=== PATIENT | male | born 1960 | race Caucasian/White ===

== ENCOUNTER 2017-01-06 08:42 | Inpatient (IN) | payer SELFPAY ==
[~2017-01-06] VITALS: Ht 177.8 cm; Wt 83.9 kg
[2017-01-06] MEDS ORDERED: ONDANSETRON 4 MG/2 ML VIAL IV ONE (09:30)
[2017-01-06] MEDS ORDERED: IV NORMAL SALINE 1000 ML BAG IV ONE (09:30)
[2017-01-06] MEDS ORDERED: ONDANSETRON 4 MG/2 ML VIAL ONE (09:51)
[2017-01-06 09:54] LABS: BASOPHILS % (AUTO) 0.2 % (0.0-2.0); EOSINOPHILS % (AUTO) 0.4 % (0.0-7.0); HEMATOCRIT 44.4 % (40-50); HEMOGLOBIN 14.7 G/DL (14.0-18.0); LYMPHOCYTES # (AUTO) 4.4 K/UL (0.8-4.8); LYMPHOCYTES % (AUTO) 36.8 % (20.5-51.5); MEAN CORPUSCULAR HEMOGLOBIN 26.8 UUG (27.0-31.0); MEAN CORPUSCULAR HGB CONC 33 g/dL (32.0-37.0); MONOCYTES # (AUTO) 1.9 K/UL (0.1-1.30); NEUTROPHILS # (AUTO) 5.6 K/UL (1.8-8.9); NEUTROPHILS % (AUTO) 46.6 % (38.5-71.5); PLATELET COUNT (AUTO) 175 K/UL (150-450); RED BLOOD CELL COUNT(AUTO) 5.48 MIL/UL (4.7-6.1); WHITE BLOOD COUNT (AUTO) 11.9 K/UL (4.0-11.2)
[2017-01-06 10:05] LABS: CREATININE 1.2 mg/dL (0.6-1.3)
[2017-01-06 10:09] LABS: *MONOTEST POSITIVE (NEGATIVE)
[2017-01-06] MEDS ORDERED: IV NORMAL SALINE 250 ML IV ONE (10:30)
[2017-01-06] MEDS ORDERED: IOHEXOL 300MG/ML 100 ML INFUS..BTL ONE (10:30)
--- NOTE | 2017-01-06 11:00 | NUR ---
per pt friend, pt is acting bizzare started few days ago, missed work a few days.
[2017-01-06 11:10] LABS: BAND % (MANUAL) 5 % (0-10); LYMPHOCYTES % (MANUAL) 34 % (20-40); MONOCYTES % (MANUAL) 4 % (2-10); NEUTROPHILS % (MANUAL) 43 % (42-75)
[2017-01-06] MEDS ORDERED: DEXAMETHASONE SOD PHOSPHATE 4 MG INJ IV ONE (11:30)
[2017-01-06] MEDS ORDERED: DEXAMETHASONE SOD PHOSPHATE 10 MG INJ ONE (11:42)
[2017-01-06 11:59] LABS: ALANINE AMINOTRANSFERASE 81 U/L (16-63); ALKALINE PHOSPHATASE 88 U/L (50-136); ASPARTATE AMINOTRANSFERASE 59 U/L (15-37); BILIRUBIN,DIRECT < 0.1 mg/dL (0.0-0.2); BILIRUBIN,TOTAL 0.5 mg/dL (0.2-1.0); TOTAL PROTEIN, SERUM 8.3 g/dL (6.4-8.2)
[2017-01-06 12:22] LABS: *AMPHETAMINE, URINE NEGATIVE (NEGATIVE); *BARBITURATE, URINE NEGATIVE (NEGATIVE); *CANNABINOID, URINE NEGATIVE (NEGATIVE); *COCCAINE, URINE NEGATIVE (NEGATIVE); *OPIATE, URINE NEGATIVE (NEGATIVE); *PHENCYCLIDINE SCREEN,URINE NEGATIVE (NEGATIVE)
--- NOTE | 2017-01-06 12:42 | NUR ---
ranjan at bedside to evaluate the pt.
[2017-01-06] MEDS ORDERED: MORPHINE SULFATE 2 MG/1 ML DISP.SYRIN IV PRN (13:00)
[2017-01-06] MEDS ORDERED: ONDANSETRON 4 MG/2 ML VIAL IV PRN (13:00)
[2017-01-06] MEDS ORDERED: IV D5/ 0.9% NACL 1,000 ML IV PRN (13:00)
[2017-01-06 13:33] LABS: *BLOOD, URINE 2+ (NEGATIVE); *CLARITY,URINE CLEAR (CLEAR); *COLOR,URINE YELLOW (YELLOW); *KETONES,URINE 3+ (NEGATIVE); *PROTEIN,URINE 2+ (NEGATIVE); *UROBILINOGEN,URINE 0.2 E.U./dl (NORMAL); LEUKOCYTE ESTERASE ,URINE NEGATIVE (NEGATIVE); NITRITE, URINE NEGATIVE (NEGATIVE); PH,URINE 5.5 (5.0-8.0); UGLUCOSE NEGATIVE (NEGATIVE)
[2017-01-06 13:35] LABS: *BILIRUBIN,URIN NEGATIVE (NEGATIVE)
[2017-01-06 13:37] LABS: BACTERIA,URINE NONE SEEN /HPF (NONE SEEN); RBC,URINE 0-3 /HPF (0-3); SQUAMOUS EPITHELIAL CELL,UR FEW /HPF (NONE SEEN); WBC,URINE 0-3 /HPF (0-3)
[2017-01-06] MEDS ORDERED: ACETAMINOPHEN 325 MG TABLET PO PRN (14:00)
[2017-01-06] MEDS ORDERED: AMPICILLIN IV 1 G in IV NORMAL SALINE 50 ML IV SCH ×2 (14:00→15:00)
[2017-01-06] MEDS ORDERED: PANTOPRAZOLE SODIUM 40 MG VIAL IV SCH (14:00)
[2017-01-06] MEDS ORDERED: FAMOTIDINE. 20 MG/2 ML VIAL IV SCH (14:07)
--- NOTE | 2017-01-06 15:40 | NUR ---
Patient admitted from emergency room with complaints of sore throat and difficulty swallowing. On assessment patient found to have mononucleosis. Patient is alert and oriented times four. No skin issues at this time. Patient ambulatory and continent. On room air. Calm and cooperative. Will wait for orders.
[2017-01-06 16:00] VITALS: BP 129/61
[2017-01-06] MEDS: ACYCLOVIR IV 500 MG in IV DEXTROSE 5% 100 ML IV SCH ×2 (18:54→21:28)
--- NOTE | 2017-01-06 19:45 | NUR ---
PT RECEIVED IN BED, AWAKE. A/OX4. ABLE TO MAKE NEEDS KNOWN. V/S STABLE. IN NO ACUTE DISTRESS. DOES NOT SHOW DIFFICULTY IN BREATHING. HAS NON-PRODUCTIVE COUGH. NO C/O PAIN AT THIS TIME. PT REMAINS NPO AND ISOLATION IN PLACE. IVF INFUSING. SAFETY MEASURES IMPLEMENTED. CALL LIGHT WITHIN REACH.
[2017-01-06] MEDS: methylPREDNISolone SOD SUCC 40 MG/ML VIAL IV SCH (20:13)
[2017-01-06 20:40] VITALS: BP 115/69
[2017-01-06] MEDS ORDERED: CEFTRIAXONE 1 G in IV DEXTROSE 5% 50 ML IV SCH (22:45)
[2017-01-06] MEDS ORDERED: CEFTRIAXONE 1 G VIAL ONE (23:22)
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
[2017-01-07] MEDS: methylPREDNISolone SOD SUCC 40 MG/ML VIAL IV SCH ×2 (03:30→11:30)
--- NOTE | 2017-01-07 03:37 | NUR ---
UNABLE TO ADMINISTER SOLUMEDROL. IV CONTINUES TO BE D/C TILL AM
[2017-01-07 04:54] VITALS: BP 105/63
--- NOTE | 2017-01-07 06:27 | NUR ---
END OF SHIFT NOTES. PT SLEPT INTERMITTENTLY THROUGHOUT SHIFT. IN STABLE CONDITION. IV FLUIDS HELD. NO IV IN PLACE. PT REMAINS ANXIOUS. PT REQUESTS TO KNOW RESULTS OF LAB WORK. PT NEEDS ATTENDED. SAFETY MAINTAINED. PT ENCOURAGED TO STAY IN ROOM AND MAINTAIN ISOLATION ORDERS.
[2017-01-07 06:42] LABS: THYROID STIMULATING HORMONE 0.501 mIU/mL (0.358-3.740)
--- NOTE | 2017-01-07 07:30 | NUR ---
PT RECEIVED IN BED, AWAKE. A/OX4. ABLE TO MAKE NEEDS KNOWN. V/S STABLE. IN NO ACUTE DISTRESS. DOES NOT SHOW DIFFICULTY IN BREATHING. HAS NON-PRODUCTIVE COUGH. NO C/O PAIN AT THIS TIME. . SAFETY MEASURES IMPLEMENTED. CALL LIGHT WITHIN REACH.
[2017-01-07] MEDS: NYSTATIN SUSPENSION 5 ML LIQUID UDC PO SCH ×2 (08:04→12:21)
[2017-01-07 08:22] LABS: BILIRUBIN,TOTAL 0.5 mg/dL (0.2-1.0); CREATININE 1.2 mg/dL (0.6-1.3); MAGNESIUM 2.4 mg/dL (1.8-2.4); PHOSPHOROUS 3.7 mg/dL (2.5-4.9); POTASSIUM 5.3 mmol/L (3.5-5.1); TOTAL PROTEIN, SERUM 7.8 g/dL (6.4-8.2)
[2017-01-07 08:37] LABS: BASOPHILS % (AUTO) 0.1 % (0.0-2.0); EOSINOPHILS # (AUTO) 0.1 K/uL (0.0-0.7); EOSINOPHILS % (AUTO) 0.5 % (0.0-7.0); HEMATOCRIT 45.1 % (40-50); HEMOGLOBIN 15.1 G/DL (14.0-18.0); LYMPHOCYTES # (AUTO) 4.4 K/UL (0.8-4.8); LYMPHOCYTES % (AUTO) 35.9 % (20.5-51.5); MEAN CORPUSCULAR HEMOGLOBIN 27.1 UUG (27.0-31.0); MEAN CORPUSCULAR HGB CONC 33 g/dL (32.0-37.0); MEAN CORPUSCULAR VOLUME 81.2 FL (82.0-92.0); MONOCYTES # (AUTO) 1.6 K/UL (0.1-1.30); MONOCYTES % (AUTO) 12.9 % (0.0-11.0); NEUTROPHILS # (AUTO) 6.1 K/UL (1.8-8.9); NEUTROPHILS % (AUTO) 50.6 % (38.5-71.5); RED BLOOD CELL COUNT(AUTO) 5.56 MIL/UL (4.7-6.1); WHITE BLOOD COUNT (AUTO) 12.2 K/UL (4.0-11.2)
[2017-01-07 08:40] LABS: PLATELET COUNT (AUTO) 239 K/UL (150-450)
[2017-01-07] MEDS ORDERED: FAMOTIDINE 20 MG TABLET PO SCH (09:00)
[2017-01-07 10:45] LABS: BAND % (MANUAL) 2 % (0-10); LYMPHOCYTES % (MANUAL) 35 % (20-40); MONOCYTES % (MANUAL) 12 % (2-10); NEUTROPHILS % (MANUAL) 45 % (42-75)
[2017-01-07 10:47] LABS: REACTIVE LYMPHOCYTES 6 % (0-0)
[2017-01-07 11:06] VITALS: BP 115/77
[2017-01-07 11:09] LABS: HEPATITIS A AB, IgM Negative (Negative); HEPATITIS B SURFACE AG Negative (Negative)
[2017-01-07 12:11] LABS: *EBV AB VCA IGG <18.0 U/mL (0.0-17.9); *EBV AB VCA IGM >160.0 U/mL (0.0-35.9); *EBV NUCLEAR AG AB <18.0 U/mL (0.0-17.9)
[2017-01-07] MEDS ORDERED: predniSONE 20 MG TABLET PO SCH (12:15)
[2017-01-07] MEDS ORDERED: LEVOFLOXACIN 500 MG TABLET PO SCH (12:15)
[2017-01-07] MEDS ORDERED: NYST5ORA PO (12:49)
[2017-01-07] MEDS ORDERED: PRED-170 PO (12:49)
[2017-01-07] MEDS ORDERED: PRED10TA PO (12:49)
[2017-01-07] MEDS ORDERED: PRED20TA PO (12:49)
[2017-01-07] MEDS ORDERED: ACET325T53 PO (12:49)
[2017-01-07] MEDS ORDERED: LEVO500T2 PO (12:49)
--- NOTE | 2017-01-07 15:08 | NUR ---
D/C ORDERS RECEIVED NOTED AND CARRIED OUT.D/C INSTRUCTIONS AND EDUCATIONS GIVEN TO THE PT.PT VERBALIZED UNDERSTANDING ALL THE INSTRUCTIONS.PT LEFT THE FACILITY VIA PRIVATE CAR IN STABLE CONDITION.
[2017-01-07] MEDS ORDERED: CEFTRIAXONE 1 G in IV DEXTROSE 5% 50 ML IV SCH (23:30)
[2017-01-09 03:06] LABS: HEPATITIS Be ANTIGEN Negative (Negative)
[2017-01-09] MEDS ORDERED: predniSONE 10 MG TABLET PO SCH (09:00)
[2017-01-09 16:08] LABS: *HCV QUANT HCV Not Detected IU/mL (.)
[2017-01-10 15:09] LABS: CMV, IgG 0.64 U/mL (0.00-0.59)
[2017-01-11] MEDS ORDERED: predniSONE 5 MG TABLET PO SCH (09:00)
== END 2017-01-07 15:10 | disposition home or self-care (01) | DRG 872 ==
LOC: ER 08:42 → MED 13:23
PROVIDERS: ADMIT Internal Medicine; ATTEND Internal Medicine
DX: A41.9 Sepsis, unspecified organism (principal); D68.9 Coagulation defect, unspecified; B37.0 Candidal stomatitis; E88.09 Other disorders of plasma-protein metabolism, not elsewhere classified; E87.5 Hyperkalemia; E87.1 Hypo-osmolality and hyponatremia; B27.00 Gammaherpesviral mononucleosis without complication; R13.10 Dysphagia, unspecified; R19.6 Halitosis; Z80.42 Family history of malignant neoplasm of prostate; Z87.891 Personal history of nicotine dependence; J03.90 Acute tonsillitis, unspecified; E78.5 Hyperlipidemia, unspecified; F12.90 Cannabis use, unspecified, uncomplicated; R59.1 Generalized enlarged lymph nodes; M50.30 Other cervical disc degeneration, unspecified cervical region; R74.0 Nonspecific elevation of levels of transaminase and lactic acid dehydrogenase [LDH]; R73.9 Hyperglycemia, unspecified
CPT/HCPCS: 36415; 70450; 70491; 71010; 80307; 83605; 83735; 84100; 84132; 84443; 85025; 85730; 86308; 86403; 86644; 86645; 86705; 86709; 87040; 87070; 87086; 87340; 87350; 87521; 87806; A4217; A4663; J0133; J0290; J0696; J1100; J2920; J3490; J7030; J7050; J7060; J7512; Q9967